=== PATIENT | female | born 1960 | race Caucasian/White ===

== ENCOUNTER 2020-11-23 12:58 | Outpatient (CLI) | payer MEDICAID, SELFPAY ==
[2020-11-23 13:24] VITALS: BP 152/93; PULSE 79; RESP 17; TEMP 36.7; O2SAT 99
[2020-11-23] MEDS: Lactated Ringers 1,000 ML 80 ML IV (14:33)
[2020-11-23] MEDS: fentaNYL 100 MCG/2 ML VIAL IVP ×2 (14:43→14:58)
[2020-11-23] MEDS: Midazolam 2 MG/2 ML VIAL IVP (14:44)
[2020-11-23 15:05] VITALS: BP 152/86; PULSE 66; RESP 12; O2SAT 100
--- NOTE | 2020-11-23 15:15 | PDOC.PAIN_ITS ---
Pain Clinic Procedure Note Procedure Note Procedure Note: Right Knee Radiofrequency with Coolief Machine PROCEDURE NOTE Date of Service: November 23, 2020 Patient: Vishnu Alfaro Provider: Sukhdev Abreu MD Pre Operative Diagnosis: knee osteoarthritis Post Operative Diagnosis: same as above PROCEDURE: 1. Superolateral genicular branch from the vastus lateralis 2. Superomedial genicular branch from the vastus medialis 3. Inferomedial genicular branch from the saphenous nerve 4. Medial retinacular branch of the nerve vastus intermedius Vishnu Alfaro was brought into brought to the procedure room and placed on the exam table in a comfortable supine position. The place for needle placement was obtained by manual palpation with radiographic confirmation. The sterile field was prepared by chloroprep and sterile drapes. Local anesthesia superficial and deep was provided by local infiltration of 10cc of preservative free 1% lidocaine. A 17g 50mm radiofrequency introducer needle with a 4mm active tip was placed overlying the right knee joint and using fluoroscopic guidance the needle was a dvanced to a bony endpoint on the superiolateral portion of the femoral condyle of the right knee. A second needle was advanced to a bony endpoint on the superiomedial portion of the femoral condyle. A third needle was then placed over the inferiomedial portion of the tibial condyle until a bony endpoint was met. Attempted aspiration yielded no blood. Lateral x-ray views showed all the needles at 50% depth of the femur and tibia. Motor stimulation was tested ad 2.0 volts with no leg movement. Images were saved in AP and lateral. A mixture consisting of preservative free 2% lidocaine was slowly injected. Then a radiofrequency ablation of each of the geniculate nerves were done at 80 degrees Celsius for 2 minutes and 30 seconds each. The needles were withdrawn. Post lesioning, a solution containing 80mg/ml of depomedrol and 0.5% preservative free Bupivocaine is injected to decrease chance of post-RF neuritis. POST PROCEDURE EVALUATION: IMPRESSION: 1. patient received 50mcg of IV fentanyl and 1mg of IV versed. 2. Patient tolerated procedure well 3. Pre-procedure VAS score 8-9 out of 10 with weight bearing and walking, post- procedure VAS score is reported as 0/10 Follow up plans and appointments were discussed with the Vishnu . Post procedure instruction was given as documented in nursing documentation and having met discharge criteria, Vishnu was discharged from the [facility]. COMMENTS: No complications. F/U with our office as needed. I personally performed this entire procedure. Sukhdev Abreu MD Pain Management Attending Physician
[2020-11-23] MEDS: Bupivacaine 0.5% Pres-Free 10 ML VIAL IJ (15:28)
[2020-11-23] MEDS: Lidocaine 1% Pres-Free 5 ML VIAL IJ (15:29)
[2020-11-23] MEDS: Lidocaine 2% Pres-Free 5 ML VIAL IJ (15:30)
[2020-11-23] MEDS: methylPREDNISolone ACETATE 80 MG/ML VIAL IJ (15:30)
== END 2020-11-23 12:59 | disposition home or self-care (01) ==
LOC: PC 13:01
PROVIDERS: PCP Internal Medicine; Visit Provider Internal Medicine
DX: M17.11 Unilateral primary osteoarthritis, right knee (principal)
CPT/HCPCS: 64624; J1040; J2250; J3010

== ENCOUNTER 2021-01-25 11:32 | Outpatient (CLI) | payer MEDICAID, SELFPAY ==
--- NOTE | 2021-01-25 06:00 | DI.RAD_ITS ---
Exam(s) XR PAIN CLINIC FLUORO JOINT IN EXAM: XR PAIN CLINIC FLUORO JOINT IN CLINICAL HISTORY: Dx: Knee Osteoarthritis. TECHNIQUE: Fluoroscopy was provided for the referring physician for guidance with performing injecti on procedure. COMPARISON: No exams were available for comparison FINDINGS: Please see procedure note for details. Fluoro time 51.8 seconds RADIATION DOSE DELIVERED: moisés Adan=4.05 mGy
[2021-01-25 11:41] VITALS: BP 130/81; PULSE 72; RESP 18; TEMP 36.6; O2SAT 98
[2021-01-25] MEDS: Lactated Ringers 1,000 ML 80 ML IV (12:11)
[2021-01-25] MEDS: fentaNYL 100 MCG/2 ML VIAL IVP ×2 (12:40→12:45)
[2021-01-25] MEDS: Midazolam 2 MG/2 ML VIAL IVP ×2 (12:40→12:51)
[2021-01-25 12:51] VITALS: BP 122/80; PULSE 60; RESP 13; O2SAT 100
--- NOTE | 2021-01-25 13:06 | PDOC.PAIN ---
Pain Clinic Procedure Note Procedure Note Procedure Note: Left Knee Radiofrequency with Coolief Machine PROCEDURE NOTE Date of Service: January 25, 2021 Patient: Vishnu Alfaro Provider: Sukhdev Abreu Pre operative Diagnosis: left knee OA Post operative Diagnosis: same as above PROCEDURE: 1. Superolateral genicular branch from the vastus lateralis 2. Superomedial genicular branch from the vastus medialis 3. Inferomedial genicular branch from the saphenous nerve 4. (Optional) Terminal branch of the nerve vastus intermedius Vishnu Alfaro was brought into brought to the procedure room and placed on the exam table in a comfortable supine position. The place for needle placement was obtained by manual palpation with fluoroscopic guidance. The sterile field was prepared using chloroprep and sterile drapes. Local, superficial anesthesia and deep anesthesia was provided by local infiltration of 10cc of 1% lidocaine. A 17g 50 mm radiofrequency introducer needle with a 4mm active tip was placed overlying the left knee joint and using fluoroscopic guidance the needle was advanced to target location on the superiolateral portion of the femoral condyle of the left knee. A second needle was advanced to a target location on the superiomedial portion of the femoral condyle. A third needle was then placed over the inferiomedial portion of the tibial condyle until a target location was met. Attempted aspiration yielded no blood. Fluoroscopic axial views showed all the needles at 50% depth of the femur and tibia. Motor stimulation was tested at 2.0 volts with no leg movement. Images were saved in AP and lateral views. 1cc of preservative free 2% lidocaine was slowly injected at each site. Then a radiofrequency ablation of each of the geniculate nerves were done at 80 degrees Celsius for 2 minutes and 30 seconds each. Post lesnioning, a mixture containing 40mg of depomedrol and 0.5% Bupivocaine was injected at each site to reduce risk of post-RF neuritis. The needles were withdrawn. POST PROCEDURE EVALUATION: IMPRESSION: 1. patient tolerated procedure 2. she received 2mg of IV versed and 50mcg of IV Fentanyl 3. pre-procedure pain level 5/10, post procedure pain level 0/10 Follow up plans and appointments were discussed with the Vishnu . Post procedure instruction was given as documented in nursing documentation and having met discharge criteria, Vishnu was discharged from the [facility]. COMMENTS: No complications. F/U with our office as needed. I personally performed this entire procedure. Sukhdev Abreu MD Attending Physician
[2021-01-25] MEDS: methylPREDNISolone ACETATE 80 MG/ML VIAL IJ (13:11)
[2021-01-25] MEDS: Lidocaine 2% Pres-Free 5 ML VIAL IJ (13:11)
[2021-01-25] MEDS: Lidocaine 1% Pres-Free 5 ML VIAL IJ (13:12)
[2021-01-25] MEDS: Bupivacaine 0.5% Pres-Free 10 ML VIAL (13:13)
== END 2021-01-25 11:33 | disposition home or self-care (01) ==
LOC: PC 11:32
PROVIDERS: PCP Internal Medicine; Visit Provider Internal Medicine
DX: M17.12 Unilateral primary osteoarthritis, left knee (principal)
CPT/HCPCS: 64624; 77002; J1040; J2250; J3010

== ENCOUNTER 2021-11-09 13:55 | Outpatient (CLI) | payer MEDICAID, SELFPAY ==
--- NOTE | 2021-11-09 06:00 | DI.RAD_ITS ---
Exam(s) XR PAIN CLINIC FLUORO JOINT IN EXAM: XR PAIN CLINIC FLUORO JOINT IN CLINICAL HISTORY: Dx: osteoarthritis of the knee. TECHNIQUE: 2D and realtime digital imaging was performed. CONTRAST MATERIAL: Oral barium Oral water soluble contrast was administered. COMPARISON: No exams were available for comparison FINDINGS: Possibly provided during therapeutic right Apolonia genicular injections. Please see procedure report fo r details. Total cumulative dose 5.33 mGy IMPRESSION: RADIATION DOSE DELIVERED: Ka,r= mGy
[2021-11-09 15:18] VITALS: BP 139/81; PULSE 76; RESP 18; TEMP 36.9; O2SAT 99
[2021-11-09] MEDS: fentaNYL 100 MCG/2 ML VIAL IVP (15:55)
[2021-11-09] MEDS: Midazolam 2 MG/2 ML VIAL IVP (15:55)
[2021-11-09 16:21] VITALS: BP 172/87; PULSE 63; RESP 18; O2SAT 100
--- NOTE | 2021-11-09 16:24 | PDOC.PAIN_ITS ---
Pain Clinic Procedure Note Procedure Note Procedure Note: RIGHT GENICULAR NERVE RADIOFREQUENCY ABLATION WITH THE COOLIEF MACHINE Date of Service: November 09, 2021 Patient: Vishnu Alfaro Provider: Diego Montaño DO, MPH Pre-operative diagnosis: Right knee osteoarthritis Post-operative diagnosis: Same COMMENTS: Previous Genicular nerve ablation (11/23/20) to the RIGHT knee. She had >9 months of relief from this procedure. Vishnu Alfaro has been referred to the [facility] for RIGHT genicular nerve radiofrequency ablation. Vishnu was interviewed and the medical record reviewed. There were no medical, pharmacologic, radiographic or other structural contraindications to attempting fluoroscopically guided RIGHT genicular nerve radiofrequency ablation. Risks and potential side effects as well as potential benefit of the procedure were reviewed with Vishnu Alfaro , and HER voiced concerns were addressed. After I believed that the patient was completely informed, the printed consent form was signed. Standard time-out procedure was performed. Vishnu was placed in the supine position on the fluoroscopy table and automated blood pressure cuff and pulse oximeter applied. The skin entry points for approaching RIGHT superolateral genicular nerve, the suprapatellar, the superomedial genicular nerve and the inferomedial genicular was identified under the most advantageous fluoroscopic view and marked. Following thorough Chlorhexadine preparation of the skin and draping, 1% lidocaine infiltration of the skin entry point and subcutaneous tissues was accomplished using a 1.5 25G needle. Next, the 10 cm 18G RF Cannula with a 10 mm active tip was advanced to os at the location of the specific nerve roots (3) using fluoroscopic guidance. Next, sensory and motor testing was performed and no abnormal findings were found. Next, 1 cc of 2% Lidocaine was injected at each site. The lesion was then created with 80 degrees C for 90 seconds. Each needle was advance 1 cm and the lesion was completed again. Each cannula was advanced until the tip reached the posterior aspect of the bone shaft. 1/4 cc of Depomedrol (40 mg/cc) was then injected at each site followed by 1 cc of 0.5% Bupivacaine as the needle was withdrawn. The needles were removed without difficulty. Vishnu's vital signs were stable throughout the procedure and were as recorded in the docflowsheet by the nursing staff. If given, dosages of intravenous drugs for anxiolysis and analgesia were documented in MAR. Follow up plans and appointments were discussed with the Vishnu Alfaro . Post procedure instruction was given as documented in nursing documentation and having met discharge criteria, Vishnu was discharged from the [facility]. COMMENTS: No complications. Post-procedure pain VAS score was 3/10. Kelvin WJ1, Main SJ, Kash JG, Max JG, Cliff CONSTANTINO, Tennille PH, Tirso JW. Radiofrequency treatment relieves chronic knee osteoarthritis pain: a double-blind randomized controlled trial. Pain. 2010;152(3):481-7. doi: 10.1016/[email or web address].2010.09.029. Marianela S1, Yair ON2, Nuno Y3, ?zl?lerden P2, Anil U1, Rosalino ?m?rl? I. Which one is more effective for the clinical treatment of chronic pain in knee osteoarthritis: radiofrequency neurotomy of the genicular nerves or intra- articular injection? Int J Rheum Dis. 2016 Jan 13. F/U with our office as needed I personally performed this entire procedure. Diego Montaño DO, MPH [facility]
[2021-11-09] MEDS: Lactated Ringers 500 ML 80 ML IV (16:27)
[2021-11-09] MEDS: Bupivacaine 0.5% Pres-Free 30 ML VIAL IJ (17:10)
[2021-11-09] MEDS: Lidocaine 2% Multi-Dose 20 ML VIAL IJ (17:10)
[2021-11-09] MEDS: methylPREDNISolone ACETATE 40 MG/ML VIAL IJ (17:11)
== END 2021-11-09 13:56 | disposition home or self-care (01) ==
LOC: PC 13:56
PROVIDERS: PCP Internal Medicine; Visit Provider Preventive Medicine Occupational Medicine
DX: M17.11 Unilateral primary osteoarthritis, right knee (principal)
CPT/HCPCS: 64624; 77002; J1030; J2250; J3010; J3490

== ENCOUNTER 2022-02-02 12:00 | Outpatient (CLI) | payer MEDICAID, SELFPAY ==
--- NOTE | 2022-02-02 06:00 | DI.RAD_ITS ---
Exam(s) XR PAIN CLINIC FLUORO JOINT IN EXAM: XR PAIN CLINIC FLUORO JOINT IN CLINICAL HISTORY: Dx: Osteoarthritis of the knee TECHNIQUE: 2D and realtime digital imaging was performed. COMPARISON: No exams were available for comparison FINDINGS: Fluoroscopy was utilized by Dr. Montaño. Please see the procedure note. IMPRESSION: RADIATION DOSE DELIVERED: moisés Adan=4.71 mGy
[2022-02-02 12:07] VITALS: BP 140/84; PULSE 72; RESP 22; TEMP 36.3; O2SAT 100
[2022-02-02] MEDS: fentaNYL 100 MCG/2 ML VIAL IVP ×3 (12:53→13:11)
[2022-02-02] MEDS: Midazolam 2 MG/2 ML VIAL IVP (12:53)
[2022-02-02 13:24] VITALS: BP 149/76; PULSE 68; RESP 12; O2SAT 98
[2022-02-02] MEDS: Lactated Ringers 500 ML 80 ML IV (13:28)
[2022-02-02] MEDS: Bupivacaine 0.5% Pres-Free 10 ML VIAL IJ (13:46)
[2022-02-02] MEDS: Lidocaine 2% Multi-Dose 20 ML VIAL (13:46)
[2022-02-02] MEDS: methylPREDNISolone ACETATE 40 MG/ML VIAL IJ (13:47)
--- NOTE | 2022-02-02 17:10 | PDOC.PAIN_ITS ---
Pain Clinic Procedure Note Procedure Note Procedure Note: LEFT GENICULAR NERVE RADIOFREQUENCY ABLATION WITH THE COOLIEF MACHINE Date of Service: February 02, 2022 Patient: Vishnu Alfaro Provider: Diego Montaño DO, MPH Pre-operative diagnosis: Left knee osteoarthritis Post-operative diagnosis: Same COMMENTS: Previous Genicular nerve block to the LEFT knee. Pre-procedure pain VAS was 6/10. Vishnu Alfaro has been referred to the [facility] for LEFT genicular nerve radiofrequency ablation. Vishnu was interviewed and the medical record reviewed. There were no medical, pharmacologic, radiographic or other structural contraindications to attempting fluoroscopically guided LEFT genicular nerve radiofrequency ablation. Risks and potential side effects as well as potential benefit of the procedure were reviewed with Vishnu Alfaro , and her voiced concerns were addressed. After I believed that the patient was completely informed, the printed consent form was signed. Standard time-out procedure was performed. Vishnu was placed in the supine position on the fluoroscopy table and automated blood pressure cuff and pulse oximeter applied. The skin entry points for approaching the left superolateral genicular nerve, the superomedial genicular nerve and the inferomedial genicular was identified under the most advantageous fluoroscopic view and marked. Following thorough Chlorhexadine preparation of the skin and draping, 1% lidocaine infiltration of the skin entry point and subcutaneous tissues was accomplished using a 1.5 25G needle. Next, the 10 cm 18G RF Cannula with a 10 mm active tip was advanced to os at the location of the specific nerve roots (3) using fluoroscopic guidance. Next, sensory and motor testing was performed and no abnormal findings were found. Next, 1 cc of 2% Lidocaine was injected at each site. The lesion was then created with 80 degrees C for 90 seconds. Each needle was advance 1 cm and the lesion was completed again. Each cannula was advanced until the tip reached the posterior aspect of the bone shaft. 1/3 cc of Depomedrol (40 mg/cc) was then injected at each site followed by 2 cc of 0.5% Bupivacaine as the needle was withdrawn. The needles were removed without difficulty. Vishnu's vital signs were stable throughout the procedure and were as recorded in the docflowsheet by the nursing staff. If given, dosages of intravenous drugs for anxiolysis and analgesia were documented in MAR. Follow up plans and appointments were discussed with the Vishnu Hannonots . Post procedure instruction was given as documented in nursing documentation and having met discharge criteria, Vishnu was discharged from the [facility]. COMMENTS: No complications. Kelvin WJ1, Main SJ, Kash JG, Max KrausG, Cliff CONSTANTINO, Park PH, Tirso JW. Radiofrequency treatment relieves chronic knee osteoarthritis pain: a double-blind randomized controlled trial. Pain. 2010;152(3):481-7. doi: 10.1016/[email or web address]. Marianela S1, Yair ON2, Nuno Y3, ?zl?ashish P2, Anil U1, Rosalino ?m?rl? I. Which one is more effective for the clinical treatment of chronic pain in knee osteoarthritis: radiofrequency neurotomy of the genicular nerves or intra- articular injection? Int J Rheum Dis. 2016 Jan 13. F/U with our office as needed Post-procedure pain VAS was 1/10. Diego Montaño DO, MPH [facility]
== END 2022-02-02 12:01 | disposition home or self-care (01) ==
PROVIDERS: PCP Internal Medicine; Visit Provider Preventive Medicine Occupational Medicine
DX: M17.12 Unilateral primary osteoarthritis, left knee (principal)
CPT/HCPCS: 64624; 77002; J1030; J2250; J3010; J3490